=== PATIENT | male | born 1935 | race Caucasian/White ===

== ENCOUNTER 2018-11-04 08:48 | Emergency (ER) | payer MEDICARE, BC ==
[2018-11-04 09:15] VITALS: RESP 18; TEMP 97.6
[2018-11-04] MEDS: SODIUM CHLORIDE 0.9% FLUSH 10 ML SOL IV PRN (09:20)
[2018-11-04] MEDS: SODIUM CHLORIDE 0.9% 1000ML 1,000 ML IV SCH (09:20)
[2018-11-04 09:44] LABS: ALBUMIN 3.1 gm/dl (3.4-5.0); BILIRUBIN,TOTAL 0.8 mg/dl (0.2-1.0); CALCIUM 8.8 mg/dl (8.5-10.1); CARBON DIOXIDE 25.5 mEq/L (21-32); CREATININE 1.02 mg/dl (0.80-1.30); TOTAL PROTEIN 6.7 gm/dl (6.4-8.2)
[2018-11-04 09:45] LABS: TROP I 0.037 ng/ml (0.000-0.056)
[2018-11-04 09:48] LABS: HEMATOCRIT 41 % (39-53); HEMOGLOBIN 13.9 gm/dl (13.5-17.7)
[2018-11-04 09:49] LABS: BASOPHILS % (AUTO) 0 % (0-3); EOSINOPHILS % (AUTO) 2 % (0-9); LYMPHOCYTES % (AUTO) 12.4 % (10-50); MEAN CORPUSCULAR HEMOGLOBIN 33.4 pg (27.0-32.0); MEAN CORPUSCULAR HGB CONC 34.2 gm/dl (32.0-36.0); MEAN CORPUSCULAR VOLUME 98 fL (80-100); NEUTROPHILS % (AUTO) 79.7 % (37-80)
[2018-11-04] MEDS: BACITRACIN 500 U/GM OIN TOP ONE (11:11)
[2018-11-04] MEDS ORDERED: BACITRACIN 500 U/GM OIN TOP ONE (11:15)
[2018-11-04 11:32] VITALS: BP 110/78; PULSE 88; O2SAT 93
== END 2018-11-04 12:50 | disposition home or self-care (01) | DRG 74 ==
LOC: ED 08:48
DX: E11.42 Type 2 diabetes mellitus with diabetic polyneuropathy (principal); Z79.4 Long term (current) use of insulin; I50.9 Heart failure, unspecified
CPT/HCPCS: 71046; 80053; 83880; 84484; 85025; 85379; 93005; 96365; 99283; 99285; A6402; A9270-GY